=== PATIENT | male | born 1955 | race Caucasian/White ===

== ENCOUNTER 2025-04-04 08:41 | Outpatient (AMB) | payer OTHER, SELFPAY ==
[2025-04-04 08:44] VITALS: BMI 32.4
--- NOTE | 2025-04-04 08:44 | A.PHYSOV_ITS ---
Vital Signs 04/04/25 08:44 Height 5 ft 11 in Weight 232 lb BMI 32.4 Intake Visit Reasons: RT SHOULDER INJECTION Intake Note: Patient is a 69 year old male in office today for a Right Shoulder Injection. Allergies No Known Allergies Allergy (Verified 04/04/25 08:43) [facility] Medical History (Updated 04/04/25 @ 08:59 by Sammy Boston DO) DJD of right shoulder Rotator cuff impingement syndrome of right shoulder Surgical History History of knee surgery History of hernia repair Social History Alcohol intake: current Alcohol intake frequency: does not drink Patient Tobacco Use Status: Former Tobacco user Use of substances other than those prescribed or required for medical reasons: No Current occupational status: retired Physical Exam Vital Signs: BMI result Body Mass Index 32.4 Office Procedures AMB Shoulder Injection AMB Shoulder Injection Procedure Details: After informed consent was obtained, posterior aspect of the right shoulder was prepped with Betadine. 1.5 in 22 gauge hypodermic needle was introduced percutaneously and advanced into the subacromial area. After negative aspiration for blood total volume of 6 cc containing 40 mg of triamcinolone and 2% lidocaine was injected without resistance. Needle was redirected into the glenohumeral joint an additional 6 cc of solution containing 40 mg of triamcinolone and 2% lidocaine were injected after negative aspiration for blood and without resistance. Patient tolerated procedure very well without complications with excellent anesthetic response. Shoulder Injection - : Right All charges added?: Procedure code (CPT) selection complete Office Meds Kenalog 40 mg/mL suspension for injection Performing Provider: Sammy Boston DO Performing Location: [facility] Administered by: Sammy Boston DO on 04/04/25 08:58 Dose Route Admin Location Dispensed Lot Number Expiration Date [facility] [employer] 80 mg intra-articular 2 mL [address]-9 [employer] Total Dispensed Waste 2 mL 0 % lidocaine (PF) 20 mg/mL (2 %) injection solution Performing Provider: Sammy Boston DO [facility] Administered by: Sammy Boston DO on 04/04/25 08:58 Dose Route Admin Location Dispensed Lot Number Expiration Date [facility] [employer] 200 mg intra-articular 10 mL [id number] [facility] Total Dispensed Waste 10 mL 0 % Assessment & Plan Assessment & Plan (1) Rotator cuff impingement syndrome of right shoulder: Code(s): M75.41 - Impingement syndrome of right shoulder Category: Medical Plan: Shoulder injection (2) DJD of right shoulder: Code(s): M19.011 - Primary osteoarthritis, right shoulder Category: Medical Qualifiers: Osteoarthritis type: primary Qualified Code(s): M19.011 - Primary osteoarthritis, right shoulder Plan: Shoulder injection Plan Shoulder injection Orders: Orders AMB Shoulder Injection Today M19.011 - Primary osteoarthritis, right shoulder, M75.41 - Impingement syndrome of right shoulder Coding Level of Care Code Procedure Only Diagnoses Rotator cuff impingement syndrome of right shoulder M75.41 Primary osteoarthritis of right shoulder M19.011 Osteoarthritis type: primary CPT Codes AMB Shoulder Injection - Hip/Bursa Injection - : Right ([id number])
--- OUTSIDE RECORDS SUMMARY | 2025-04-04 09:23 | XMS_ITS | Patient Health Record ---
Author Organization [facility] Address [address] [place] [address] Care Team Providers Care Engineering Patternmaker Name Role Phone FÉLIX BRO Primary Care Provider Faizan Rosa Unavailable [phone] Allergies Allergen (clinical drug ingredient) Drug/Non Drug Allergy documented on EMR Reaction Allergy Type Onset Date Status Substance with 9-fjzlpqy-7-methylglu taryl-coenzyme A reductase inhibitor mechanism of action (substance) Statins Muscle aches Drug Allergy Active Results Component Value Reference Range Notes US ABDOMEN AORTIC ANEURYSM S CREENING Reviewed date:03/15/2025 05:02:29 PM Interpretation: Performing Lab: Notes/Report: Note See Note [facility], a member of [email or web address] Patient Name: PALLAVI ELLIOTT Date of : 1955 Reason for Exam: US abdomen Aorta Scr Study AAA Exam Date: 03/15/2025 [id number] EST Report Status: Final Ordering Provider: FÉLIX BRO PCP: FÉLIX BRO HISTORY: The patient is a 69-year-old male former smoker with hypertension, presenting for screening for an abdominal aortic aneurysm. FINDINGS: Real-time ultrasonography of the abdominal aorta is performed. The aorta is normal in caliber, with the suprarenal aorta measuring 3.1 cm in AP dimension x 2.6 cm in transverse dimension; the proximal infrarenal aorta measuring 2.1 x 2.2 cm; and the distal infrarenal aorta measuring 1.9 x 1.6 cm. The common iliac arteries are normal in caliber, with the right ARCHANA measuring 1.6 cm and the left ARCHANA measuring 1.5 cm. IMPRESSION: The abdominal aorta is normal in caliber, without evidence of aneurysm. Code 62278 G9551 -------- FINAL REPOR T -------- Dictated By: Pallavi Sarmiento Dictated Date: 03/15/2025 11:06 ET Assigned Physician: Pallavi Sarmiento Reviewed and Electronically Signed By: Pallavi Sarmiento Signed Date: 11:08 ET Workstation ID: [id number] Transcribed By: Self Edit Transcribed Date: 03/15/2025 11:06 ET LIPID PANEL WITH REFLEX TO D IRECT LDL Reviewed date:03/06/2025 05:41:03 PM Interpretation: Performing Lab: Notes/Report: Cholesterol 148 0-200 mg/dL Triglycerides 150 0-150 mg/dL HDL 40 >=40 mg/dL LDL Calculated 78 0-100 mg/dL Estimated LDL Calculated using equation: Total cholesterol - HDL cholesterol - (Triglycerides/5) VLDL Cholesterol Reinaldo 30 Non HDL Chol. (LDL+VLDL) 108 <145 mg/dL Chol/HDL Ratio 3.7 0.0-4.4 BASIC METABOLIC PANEL Reviewed date:03/06/2025 05:41:04 PM Interpretation: Performing Lab: Notes/Report: Sodium 139 133-145 mmol/L Potassium 4.1 3.5-5.5 mmol/L Chloride 104 96-110 mmol/L CO2 29 21-32 mmol/L Anion Gap 6 3-11 Glucose 103 70-100 mg/dL BUN 29 5-25 mg/dL Creatinine 1.23 0.70-1.30 mg/dL eGFR 63 >=60 mL/min/1.73m2 Calculati on based on the Chronic Kidney Disease Epidemiology Collaboration (CKD-EPI) equation refit without adjustment for race. BUN/Creatinine Ratio 23.6 Calcium 9.5 8.5-10.5 mg/dL TISSUE EXAM Reviewed date:12/24/2024 12:05:04 AM Interpretation: Performing Lab: Notes/Report: Received in formalin labeled cecum x 2 , are 2 ramirez-white, polypoid soft tissue fragments, averaging 0.5 x 0.3 x 0.2 cm. The specimen is entirely submitted in cassette A1, 2 pieces. TAMIE SANCHEZ (ASCP)CM- 12/22/24 B. Large Intestine, Right/Ascending Colon, x4: Received in formalin labeled right/ascending colon polyp x 4 , are multiple ramirez-white, polypoid soft tissue fragments, ranging from 0.2 x 0.2 x 0.1 cm to 1.0 x 0.5 x 0.3 cm. The specimen is entirely submitted in cassette B1, multiple pieces. MG PA (ASCP)CM- 12/22/24 C. Large Intestine, Transverse Colon, x4: Received in formalin labeled transverse colon polyp x 4 , are multiple ramirez- white, polypoid soft tissue fragments ranging from 0.2 x 0.1 x 0.1 cm to 0.7 x 0.2 x 0.2 cm. The specimen is entirely submitted in cassette C1, multiple pieces. MG PA (ASCP)CM- 12/22/24 D. Large Intestine, Sigmoid Colon, : Received in formalin labeled sigmoid colon polyp , is a ramirez-white, polypoid soft tissue fragment measuring 1.4 x 0.3 x 0.2 cm. The specimen is entirely submitted in cassette D1, 1 piece. MG PA (ASCP)CM- 12/22/24 Final Diagnosis A. Large Intestine, cecum, polyp x 2, biopsy: Two fragments of hyperplastic polyps. Clinically 2 polyps. B. Large Intestine, ascending colon, polyp x 4, biopsy: Predominantly fragments of sessile serrated lesion/s. One fragment of tubular adenoma. Additional fragments of colonic mucosa with patchy mucosal hyperplasia and lymphoid aggregates. No evidence of high-grade dysplasia. Clinically 4 polyps. C. Large Intestine, transverse Colon, polyp x 4, biopsy: Predominantly fragments of tubular adenoma. Few fragments of sessile serrated lesion/s. Additional fragments of colonic mucosa with patchy mucosal hyperplasia. Negative for high-grade dysplasia. Clinically 4 polyps. D. Large Intestine, sigmoid colon, biopsy: Hyperplastic polyp. Gross Description A. Large Intestine, Cecum, x2: Disclaimer The technical compon ents of [place] [address] CLIA # [id number] LIPID PANEL WITH REFLEX TO Norman MILLERCT LDL Reviewed date:08/24/2024 01:23:26 PM Interpretation: Performing Lab: Notes/Report: Cholesterol 202 0-200 mg/dL Triglycerides 142 0-150 mg/dL HDL 43 >=40 mg/dL LDL Calculated 131 0-100 mg/dL VLDL Cholesterol Reinaldo 28.4 Non HDL Chol. (LDL+VLDL) 159 <145 mg/dL Chol/HDL Ratio 4.7 0.0-4.4 COMPREHENSIVE METABOLIC PANE L Reviewed date:08/24/2024 01:24:16 PM Interpretation: Performing Lab: Notes/Report: Sodium 135 133-145 mmol/L Potassium 4.1 3.5-5.5 mmol/L Chloride 101 96-110 mmol/L CO2 27 21-32 mmol/L Anion Gap 7 3-11 Glucose 116 70-100 mg/dL BUN 26 5-25 mg/dL Creatinine 1.30 0.70-1.30 mg/dL eGFR 59 >=60 mL/min/1.73m2 Calculati on based on the Chronic Kidney Disease Epidemiology Collaboration (CKD-EPI) equation refit without adjustment for race. BUN/Creatinine Ratio 20.0 Calcium 10.0 8.5-10.5 mg/dL AST (SGOT) 33 10-42 unit/L ALT (SGPT) 42 10-60 unit/L Alkaline Phosphatase 40 42-121 unit/L Total Protein 7.4 6.0-8.0 g/dL Albumin 4.2 3.2-5.0 g/dL Total Bilirubin 0.7 0.0-1.4 mg/dL HEMOGLOBIN A1C Reviewed date:08/24/2024 04:21:42 PM Interpretation: Performing Lab: Notes/Report: Hemoglobin A1C 5.4 <6.5 % Mean Bld Glu Estim. 108 MICROALBUMIN CREATININE URIN E RATIO Reviewed date:08/25/2024 07:37:13 AM Interpretation: Performing Lab: Notes/Report: Creatinine, Urine 169.0 Microalb, Ur 28.4 0.0-29.0 mg/L Microalb/Creat Ratio 17 <30 mg/g creat Reason For Referral Reason SCREENING- Positive cologuard. Never had colonoscopy Please evaluate and treat Diagnosis 1 Encounter for screen ing for malignant neoplasm of colon (Z12.11) Referral Organization [facility] Referring Provider First Name FÉLIX Referring Provider Last Name DIEUDONNE Referring Provider Speciality Internal M edicine Referred Provider Specialty Gastroentero logy General Notes Please call the meng ent to schedule the appointment, Encounter created and SMS sent to the ptOsbaldo Rubin Charmain 12/01/2024 09:50:10 AM > Referral Priority Urgent Medications Medication SIG (Take, Route, Frequency, Duration) Notes Start Date End Date Status Lisinopril 40 MG 1 tablet Orally Once a day; Duration: 90 days Active Ezetimibe 10 MG 1 tablet Orally Once a day; Duration: 30 days Active hydroCHLOROthiazide 25 MG TAKE 1 TABLET BY MOUTH DAILY IN THE MORNING; Duration: 30 Active Fenofibrate 145 MG 1 tablet Orally Once a day; Duration: 30 days 02/16/2024 Active Claritin Active Nexletol 180 MG 1 tablet Orally Once a day; Duration: 90 days 08/31/2024 Active CoQ-10 200 MG as directed Orally Active Multivitamin Active amLODIPine Besylate 10 MG TAKE 1 TABLET BY MOUTH DAILY; Duration: 30 Active Aspir-81 Active Triamcinolone Acetonide 0.1 % 1 application Externally Two times a Week; Duration: 30 days 2 tubes Active cloNIDine 0.1 MG/24HR 1 patch to skin Transdermal Once weekly; Duration: 90 days Active Social History Tobacco Use: Social History Observation Description Date Details (start date - stop date) Never Smoker NA - NA Tobacco Use/Smoking Question Answer Notes Are you a nonsmoker Problems Problem Type SNOMED Code ICD Code Onset Dates Problem Status W/U Status Risk Notes Problem Morbid obesity (disorder) (995029232) Morbid (severe) obesity due to excess calories (E66.01) Active confirmed Problem Obesity due to excess calories (453437412) Other obesity due to excess calories (E66.09) Active confirmed Problem Mixed hyperlipidemia (720425027) Mixed hyperlipidemia (E78.2) Active confirmed Problem Chronic kidney disease due to hypertension (614061723695740) Hypertensive chronic kidney disease with stage 1 through stage 4 chronic kidney disease, or unspecified chronic kidney disease (I12.9) Active confirmed Problem Polyp of colon (91482776) Polyp of colon (K63.5) Active confirmed Problem Osteoarthritis (914767236) Polyosteoarthriti s, unspecified (M15.9) Active confirmed Problem Artificial knee joint present (284454701040) Presence of right artificial knee joint (Z96.651) Active confirmed Problem Essential hypertension (64417110) Essential (primary) hypertension (I10) Active confirmed Problem Chronic kidney disease stage 3A (disorder) (776722693) Chronic kidney disease, stage 3a (N18.31) Active confirmed Vital Signs Heart Rate 90 /min 03/02/2025 Temperature 97.0 degrees Fahrenheit 03/02/2025 Oximetry 96 % 03/02/2025 Blood pressure diastolic 78 mm Hg 03/02/2025 Height 5'11'' in 03/02/2025 Blood pressure systolic 120 mm Hg 03/02/2025 Weight 236.0 lbs 03/02/2025 BMI 32.91 kg/m2 03/02/2025 Encounters Encounter Location Date Provider Diagnosis [address] [place] [address] 05/03/2024 HEARD GUL Essential (primary) hypertension I10 ; Mixed hyperlipidemia E78.2 ; Morbid (severe) obesity due to excess calories E66.01 and Prediabetes R73.[address] [place] [address] 08/31/2024 HEARD GUL Essential (primary) hypertension I10 ; Mixed hyperlipidemia E78.2 ; Morbid (severe) obesity due to excess calories E66.01 and Dietary counseling and surveillance Z71.[address] [place] [address] 12/01/2024 HEARD GUL Mixed hyperlipidemia E78.2 ; Essential (primary) hypertension I10 ; Other obesity due to excess calories E66.09 and Dietary counseling and surveillance Z71.[address] [place] [address] 03/02/2025 HEARD GUL Other obesity due to excess calories E66.09 ; Essential (primary) hypertension I10 ; Dietary counseling and surveillance Z71.3 ; Personal history of nicotine dependence Z87.891 ; Mixed hyperlipidemia E78.2 ; Chronic kidney disease, stage 3a N18.31 and Hypertensive chronic kidney disease with stage 1 through stage 4 chronic kidney disease, or unspecified chronic kidney disease I12.[address] [place] [address] 09/01/2024 HEARD GUL [address] [place] [address] 10/28/2024 [facility] [address] [place] [address] 12/01/2024 [facility] [address] [facility] [place] [address] 12/01/2024 HEARD GUL Mixed hyperlipidemia E78.2 [facility] [address] [place] [address] 01/23/2025 [facility] [address] [place] [address] 02/20/2025 [facility] Mixed hyperlipidemia E78.2 [facility] [address] [place] [address] 03/02/2025 [facility] [address] [place] [address] 05/22/2024 [facility] [address] [place] [address] 06/06/2024 [facility] [address] [place] [address] 07/04/2024 [facility] [address] [place] [address] 07/05/2024 [facility] [address] [place] [address] 08/01/2024 [facility] [address] [place] [address] 08/03/2024 [facility] [address] [place] [address] 09/01/2024 [facility] [address] [place] [address] 09/02/2024 [facility] [address] [place] [address] 12/01/2024 HEARD GUL [facility] [address] [place] [address] 02/19/2025 FÉLIX BRO Mixed hyperlipidemia E78.2 [facility] [address] [place] [address] 02/19/2025 HEARD [facility] [address] [address] 02/22/2025 HEARD GUL Mixed hyperlipidemia E78.2 [facility] [address] [place] [address] 03/13/2025 FÉLIX BRO Assessments Encounter Date Diagnosis (ICD Code) Assessment Notes Treatment Notes Treatment Clinical Notes Section Notes 05/03/2024 Essential (primary) hypertension (ICD-10 - I10) Pallavi is 68 years old gentlemanhis hypertension, hyperlipidemia, osteoarthritis, morbid obesity is here for follow-up. Plan is as follows Hypertension. Blood pressure reasonably controlled on current regimen of clonidine 0.1 mg patch, amlodipine 10 mg daily, lisinopril 40 mg daily and hydrochlorothiazide 25 mg daily. Mixed hyperlipidemia. Unfortunately cannot tolerate statins. Lipid panel is abnormal. Continue Zetia 10 mg and he is also on fenofibrate 145 mg daily. Recheck lipid panel and he can be a good candidate for Rapatha or Bempiodoic acid. We will discuss our next appointment Osteoarthritis. He follows up with physiatry and have intra-articular injections in the knee joint Prediabetes. Complications of diabetes discussed. Will weight loss recommended along with dietary changes and check A1c before next appointment Morbid obesity. He has been noncompliant with low calorie diet and he is trying to change his eating habits and check hemoglobin A1c and fasting sugars before next appointment. If he fails with dietary modification can be a good candidate for GLP-1. Screening blood work ordered 08/31/2024 Mixed hyperlipidemia (ICD-10 - E78.2) Pallavi is 69-year-old woman with hypertension, hyperlipidemia, multiple joint osteoarthritis and status post right knee replacement and morbid obesity is here today for follow-up. Plan is as follows Hypertension. Blood pressure well controlled on amlodipine 10 mg daily and lisinopril 2 mg daily. Mixed hyperlipidemia. He is currently on Zetia 10 mg and fenofibrate 145 mg daily his total cholesterol is 202 and LDL cholesterol is 131. His goal LDL cholesterol is under 100. he cannot tolerate statins. We will try PCSK 9 and Neltrexol if covered by insurance because his ASCVD risk is 23.7%. Morbid obesity. He has lost 20 pounds since his last visit and he is doing it with diet and exercise. He is plateaued. Today we talked about medical meal replacement plans and he wants to try. He is not interested in pharmacotherapy. His goal is to lose 6 pounds a month. Follow-up in 3 months 12/01/2024 Essential (primary) hypertension (ICD-10 - I10) Pallavi is 69-year-old woman with hypertension, hyperlipidemia, multiple joint osteoarthritis and status post right knee replacement and morbid obesity is here today for follow-up. Plan is as follows Hypertension. Blood pressure well controlled on amlodipine 10 mg daily and lisinopril 2 mg daily. Mixed hyperlipidemia. He is currently on Zetia 10 mg and fenofibrate 145 mg daily and continue Neltrexol his ASCVD risk is 23.7%. Morbid obesity. He has lost 20 pounds since his last visit and he is doing it with diet and exercise. He is plateaued. Today we talked about medical meal replacement plans and he wants to try. He is not interested in pharmacotherapy. His goal is to lose 6 pounds a month. Positive Cologuard. We will do screening colonoscopy and referral done Follow-up in 3 months 12/01/2024 Mixed hyperlipidemia (ICD-10 - E78.2) 02/19/2025 Mixed hyperlipidemia (ICD-10 - E78.2) 02/20/2025 Mixed hyperlipidemia (ICD-10 - E78.2) 02/22/2025 Mixed hyperlipidemia (ICD-10 - E78.2) 03/02/2025 Other obesity due to excess calories (ICD-10 - E66.09) Pallavi is 69 years old gentleman with hypertension, hyperlipidemia, multiple joint osteoarthritis, chronic kidney disease stage IIIa and former smoker is here today for follow-up on morbid obesity and weight management. He is not on any medications at this point in time. He is doing dietary changes. Plan is as follows Hypertension. Blood pressure well controlled on lisinopril 40 mg daily and he is also on clonidine 0.4 mg 24 hours patch, amlodipine 10 mg daily and hydrochlorothiazide 25 mg daily. Low sodium diet recommended Mixed hyperlipidemia. Continue on Zetia 10 mg daily, fenofibrate 145 mg daily and he is also on Nexletol 180 mg daily and is tolerating the medication fine. Check lipid panel. Chronic kidney disease stage IIIa. He is stable and advised appropriate hydration, avoid NSAIDs and we will monitor. Personal history of nicotine dependence. Will do ultrasound to rule out AAA Morbid obesity. He lost 3 pounds since last visit and he is not on medications. Dietary recommendations. Food recall was done today and patient advised to be on low calorie, low carbohydrate diet. Restrict calories to less than 1500 kcal in 24 hours. Low glycemic index foods and encouraged. Meal replacements were recommended. Advised to use yqkm-rrv-otviotj multivitamins and vitamin D. Advised to use calorie counter and adhere to portion control. Monthly goal is to lose 4-6 pounds Pharmacotherapy. He is not interested in pharmacotherapy at this point Exercise. Patient encouraged to increase frequency, intensity and duration of exercise. Encouraged to burn at least 250-500 kcal in one session. Also encouraged to do weight training Assess. Different risk factors discussed with the patient and addressed Advise. Patient was given clear And specific advise that she will comply with Low-calorie diet and try not to exceed more than 1300 kcal in 24 hours. Agree. Mutually agreed to work together to achieve appropriate goals Assist. Motivational interviewing done. Arrange. Follow-up appointment arranged. Counseling. 25 minutes spent Face to face with the patient more than 50% of time was spent counseling 08/31/2024 Essential (primary) hypertension (ICD-10 - I10) Pallavi is 69-year-old woman with hypertension, hyperlipidemia, multiple joint osteoarthritis and status post right knee replacement and morbid obesity is here today for follow-up. Plan is as follows Hypertension. Blood pressure well controlled on amlodipine 10 mg daily and lisinopril 2 mg daily. Mixed hyperlipidemia. He is currently on Zetia 10 mg and fenofibrate 145 mg daily his total cholesterol is 202 and LDL cholesterol is 131. His goal LDL cholesterol is under 100. he cannot tolerate statins. We will try PCSK 9 and Neltrexol if covered by insurance because his ASCVD risk is 23.7%. Morbid obesity. He has lost 20 pounds since his last visit and he is doing it with diet and exercise. He is plateaued. Today we talked about medical meal replacement plans and he wants to try. He is not interested in pharmacotherapy. His goal is to lose 6 pounds a month. Follow-up in 3 months 12/01/2024 Mixed hyperlipidemia (ICD-10 - E78.2) Pallavi is 69-year-old woman with hypertension, hyperlipidemia, multiple joint osteoarthritis and status post right knee replacement and morbid obesity is here today for follow-up. Plan is as follows Hypertension. Blood pressure well controlled on amlodipine 10 mg daily and lisinopril 2 mg daily. Mixed hyperlipidemia. He is currently on Zetia 10 mg and fenofibrate 145 mg daily and continue Neltrexol his ASCVD risk is 23.7%. Morbid obesity. He has lost 20 pounds since his last visit and he is doing it with diet and exercise. He is plateaued. Today we talked about medical meal replacement plans and he wants to try. He is not interested in pharmacotherapy. His goal is to lose 6 pounds a month. Positive Cologuard. We will do screening colonoscopy and referral done Follow-up in 3 months 03/02/2025 Essential (primary) hypertension (ICD-10 - I10) Pallavi is 69 years old gentleman with hypertension, hyperlipidemia, multiple joint osteoarthritis, chronic kidney disease stage IIIa and former smoker is here today for follow-up on morbid obesity and weight management. He is not on any medications at this point in time. He is doing dietary changes. Plan is as follows Hypertension. Blood pressure well controlled on lisinopril 40 mg daily and he is also on clonidine 0.4 mg 24 hours patch, amlodipine 10 mg daily and hydrochlorothiazide 25 mg daily. Low sodium diet recommended Mixed hyperlipidemia. Continue on Zetia 10 mg daily, fenofibrate 145 mg daily and he is also on Nexletol 180 mg daily and is tolerating the medication fine. Check lipid panel. Chronic kidney disease stage IIIa. He is stable and advised appropriate hydration, avoid NSAIDs and we will monitor. Personal history of nicotine dependence. Will do ultrasound to rule out AAA Morbid obesity. He lost 3 pounds since last visit and he is not on medications. Dietary recommendations. Food recall was done today and patient advised to be on low calorie, low carbohydrate diet. Restrict calories to less than 1500 kcal in 24 hours. Low glycemic index foods and encouraged. Meal replacements were recommended. Advised to use ekrz-nap-xvmjwjx multivitamins and vitamin D. Advised to use calorie counter and adhere to portion control. Monthly goal is to lose 4-6 pounds Pharmacotherapy. He is not interested in pharmacotherapy at this point Exercise. Patient encouraged to increase frequency, intensity and duration of exercise. Encouraged to burn at least 250-500 kcal in one session. Also encouraged to do weight training Assess. Different risk factors discussed with the patient and addressed Advise. Patient was given clear And specific advise that she will comply with Low-calorie diet and try not to exceed more than 1300 kcal in 24 hours. Agree. Mutually agreed to work together to achieve appropriate goals Assist. Motivational interviewing done. Arrange. Follow-up appointment arranged. Counseling. 25 minutes spent Face to face with the patient more than 50% of time was spent counseling 03/02/2025 Dietary counseling and surveillance (ICD-10 - Z71.3) Pallavi is 69 years old gentleman with hypertension, hyperlipidemia, multiple joint osteoarthritis, chronic kidney disease stage IIIa and former smoker is here today for follow-up on morbid obesity and weight management. He is not on any medications at this point in time. He is doing dietary changes. Plan is as follows Hypertension. Blood pressure well controlled on lisinopril 40 mg daily and he is also on clonidine 0.4 mg 24 hours patch, amlodipine 10 mg daily and hydrochlorothiazide 25 mg daily. Low sodium diet recommended Mixed hyperlipidemia. Continue on Zetia 10 mg daily, fenofibrate 145 mg daily and he is also on Nexletol 180 mg daily and is tolerating the medication fine. Check lipid panel. Chronic kidney disease stage IIIa. He is stable and advised appropriate hydration, avoid NSAIDs and we will monitor. Personal history of nicotine dependence. Will do ultrasound to rule out AAA Morbid obesity. He lost 3 pounds since last visit and he is not on medications. Dietary recommendations. Food recall was done today and patient advised to be on low calorie, low carbohydrate diet. Restrict calories to less than 1500 kcal in 24 hours. Low glycemic index foods and encouraged. Meal replacements were recommended. Advised to use vegz-edg-mdtnhba multivitamins and vitamin D. Advised to use calorie counter and adhere to portion control. Monthly goal is to lose 4-6 pounds Pharmacotherapy. He is not interested in pharmacotherapy at this point Exercise. Patient encouraged to increase frequency, intensity and duration of exercise. Encouraged to burn at least 250-500 kcal in one session. Also encouraged to do weight training Assess. Different risk factors discussed with the patient and addressed Advise. Patient was given clear And specific advise that she will comply with Low-calorie diet and try not to exceed more than 1300 kcal in 24 hours. Agree. Mutually agreed to work together to achieve appropriate goals Assist. Motivational interviewing done. Arrange. Follow-up appointment arranged. Counseling. 25 minutes spent Face to face with the patient more than 50% of time was spent counseling 12/01/2024 Other obesity due to excess calories (ICD-10 - E66.09) Pallavi is 69-year-old woman with hypertension, hyperlipidemia, multiple joint osteoarthritis and status post right knee replacement and morbid obesity is here today for follow-up. Plan is as follows Hypertension. Blood pressure well controlled on amlodipine 10 mg daily and lisinopril 2 mg daily. Mixed hyperlipidemia. He is currently on Zetia 10 mg and fenofibrate 145 mg daily and continue Neltrexol his ASCVD risk is 23.7%. Morbid obesity. He has lost 20 pounds since his last visit and he is doing it with diet and exercise. He is plateaued. Today we talked about medical meal replacement plans and he wants to try. He is not interested in pharmacotherapy. His goal is to lose 6 pounds a month. Positive Cologuard. We will do screening colonoscopy and referral done Follow-up in 3 months 05/03/2024 Mixed hyperlipidemia (ICD-10 - E78.2) Pallavi is 68 years old gentlemanhis hypertension, hyperlipidemia, osteoarthritis, morbid obesity is here for follow-up. Plan is as follows Hypertension. Blood pressure reasonably controlled on current regimen of clonidine 0.1 mg patch, amlodipine 10 mg daily, lisinopril 40 mg daily and hydrochlorothiazide 25 mg daily. Mixed hyperlipidemia. Unfortunately cannot tolerate statins. Lipid panel is abnormal. Continue Zetia 10 mg and he is also on fenofibrate 145 mg daily. Recheck lipid panel and he can be a good candidate for Rapatha or Bempiodoic acid. We will discuss our next appointment Osteoarthritis. He follows up with physiatry and have intra-articular injections in the knee joint Prediabetes. Complications of diabetes discussed. Will weight loss recommended along with dietary changes and check A1c before next appointment Morbid obesity. He has been noncompliant with low calorie diet and he is trying to change his eating habits and check hemoglobin A1c and fasting sugars before next appointment. If he fails with dietary modification can be a good candidate for GLP-1. Screening blood work ordered 08/31/2024 Morbid (severe) obesity due to excess calories (ICD-10 - E66.01) Pallavi is 69-year-old woman with hypertension, hyperlipidemia, multiple joint osteoarthritis and status post right knee replacement and morbid obesity is here today for follow-up. Plan is as follows Hypertension. Blood pressure well controlled on amlodipine 10 mg daily and lisinopril 2 mg daily. Mixed hyperlipidemia. He is currently on Zetia 10 mg and fenofibrate 145 mg daily his total cholesterol is 202 and LDL cholesterol is 131. His goal LDL cholesterol is under 100. he cannot tolerate statins. We will try PCSK 9 and Neltrexol if covered by insurance because his ASCVD risk is 23.7%. Morbid obesity. He has lost 20 pounds since his last visit and he is doing it with diet and exercise. He is plateaued. Today we talked about medical meal replacement plans and he wants to try. He is not interested in pharmacotherapy. His goal is to lose 6 pounds a month. Follow-up in 3 months 05/03/2024 Morbid (severe) obesity due to excess calories (ICD-10 - E66.01) Pallavi is 68 years old gentlemanhis hypertension, hyperlipidemia, osteoarthritis, morbid obesity is here for follow-up. Plan is as follows Hypertension. Blood pressure reasonably controlled on current regimen of clonidine 0.1 mg patch, amlodipine 10 mg daily, lisinopril 40 mg daily and hydrochlorothiazide 25 mg daily. Mixed hyperlipidemia. Unfortunately cannot tolerate statins. Lipid panel is abnormal. Continue Zetia 10 mg and he is also on fenofibrate 145 mg daily. Recheck lipid panel and he can be a good candidate for Rapatha or Bempiodoic acid. We will discuss our next appointment Osteoarthritis. He follows up with physiatry and have intra-articular injections in the knee joint Prediabetes. Complications of diabetes discussed. Will weight loss recommended along with dietary changes and check A1c before next appointment Morbid obesity. He has been noncompliant with low calorie diet and he is trying to change his eating habits and check hemoglobin A1c and fasting sugars before next appointment. If he fails with dietary modification can be a good candidate for GLP-1. Screening blood work ordered 08/31/2024 Dietary counseling and surveillance (ICD-10 - Z71.3) Pallavi is 69-year-old woman with hypertension, hyperlipidemia, multiple joint osteoarthritis and status post right knee replacement and morbid obesity is here today for follow-up. Plan is as follows Hypertension. Blood pressure well controlled on amlodipine 10 mg daily and lisinopril 2 mg daily. Mixed hyperlipidemia. He is currently on Zetia 10 mg and fenofibrate 145 mg daily his total cholesterol is 202 and LDL cholesterol is 131. His goal LDL cholesterol is under 100. he cannot tolerate statins. We will try PCSK 9 and Neltrexol if covered by insurance because his ASCVD risk is 23.7%. Morbid obesity. He has lost 20 pounds since his last visit and he is doing it with diet and exercise. He is plateaued. Today we talked about medical meal replacement plans and he wants to try. He is not interested in pharmacotherapy. His goal is to lose 6 pounds a month. Follow-up in 3 months 12/01/2024 Dietary counseling and surveillance (ICD-10 - Z71.3) Pallavi is 69-year-old woman with hypertension, hyperlipidemia, multiple joint osteoarthritis and status post right knee replacement and morbid obesity is here today for follow-up. Plan is as follows Hypertension. Blood pressure well controlled on amlodipine 10 mg daily and lisinopril 2 mg daily. Mixed hyperlipidemia. He is currently on Zetia 10 mg and fenofibrate 145 mg daily and continue Neltrexol his ASCVD risk is 23.7%. Morbid obesity. He has lost 20 pounds since his last visit and he is doing it with diet and exercise. He is plateaued. Today we talked about medical meal replacement plans and he wants to try. He is not interested in pharmacotherapy. His goal is to lose 6 pounds a month. Positive Cologuard. We will do screening colonoscopy and referral done Follow-up in 3 months 03/02/2025 Personal history of nicotine dependence (ICD-10 - Z87.891) Pallavi is 69 years old gentleman with hypertension, hyperlipidemia, multiple joint osteoarthritis, chronic kidney disease stage IIIa and former smoker is here today for follow-up on morbid obesity and weight management. He is not on any medications at this point in time. He is doing dietary changes. Plan is as follows Hypertension. Blood pressure well controlled on lisinopril 40 mg daily and he is also on clonidine 0.4 mg 24 hours patch, amlodipine 10 mg daily and hydrochlorothiazide 25 mg daily. Low sodium diet recommended Mixed hyperlipidemia. Continue on Zetia 10 mg daily, fenofibrate 145 mg daily and he is also on Nexletol 180 mg daily and is tolerating the medication fine. Check lipid panel. Chronic kidney disease stage IIIa. He is stable and advised appropriate hydration, avoid NSAIDs and we will monitor. Personal history of nicotine dependence. Will do ultrasound to rule out AAA Morbid obesity. He lost 3 pounds since last visit and he is not on medications. Dietary recommendations. Food recall was done today and patient advised to be on low calorie, low carbohydrate diet. Restrict calories to less than 1500 kcal in 24 hours. Low glycemic index foods and encouraged. Meal replacements were recommended. Advised to use [id number]-[id number] multivitamins and vitamin D. Advised to use calorie counter and adhere to portion control. Monthly goal is to lose 4-6 pounds Pharmacotherapy. He is not interested in pharmacotherapy at this point Exercise. Patient encouraged to increase frequency, intensity and duration of exercise. Encouraged to burn at least 250-500 kcal in one session. Also encouraged to do weight training Assess. Different risk factors discussed with the patient and addressed Advise. Patient was given clear And specific advise that she will comply with Low-calorie diet and try not to exceed more than 1300 kcal in 24 hours. Agree. Mutually agreed to work together to achieve appropriate goals Assist. Motivational interviewing done. Arrange. Follow-up appointment arranged. Counseling. 25 minutes spent Face to face with the patient more than 50% of time was spent counseling 03/02/2025 Mixed hyperlipidemia (ICD-10 - E78.2) Pallavi is 69 years old gentleman with hypertension, hyperlipidemia, multiple joint osteoarthritis, chronic kidney disease stage IIIa and former smoker is here today for follow-up on morbid obesity and weight management. He is not on any medications at this point in time. He is doing dietary changes. Plan is as follows Hypertension. Blood pressure well controlled on lisinopril 40 mg daily and he is also on clonidine 0.4 mg 24 hours patch, amlodipine 10 mg daily and hydrochlorothiazide 25 mg daily. Low sodium diet recommended Mixed hyperlipidemia. Continue on Zetia 10 mg daily, fenofibrate 145 mg daily and he is also on Nexletol 180 mg daily and is tolerating the medication fine. Check lipid panel. Chronic kidney disease stage IIIa. He is stable and advised appropriate hydration, avoid NSAIDs and we will monitor. Personal history of nicotine dependence. Will do ultrasound to rule out AAA Morbid obesity. He lost 3 pounds since last visit and he is not on medications. Dietary recommendations. Food recall was done today and patient advised to be on low calorie, low carbohydrate diet. Restrict calories to less than 1500 kcal in 24 hours. Low glycemic index foods and encouraged. Meal replacements were recommended. Advised to use ahbn-qkj-zxvnanf multivitamins and vitamin D. Advised to use calorie counter and adhere to portion control. Monthly goal is to lose 4-6 pounds Pharmacotherapy. He is not interested in pharmacotherapy at this point Exercise. Patient encouraged to increase frequency, intensity and duration of exercise. Encouraged to burn at least 250-500 kcal in one session. Also encouraged to do weight training Assess. Different risk factors discussed with the patient and addressed Advise. Patient was given clear And specific advise that she will comply with Low-calorie diet and try not to exceed more than 1300 kcal in 24 hours. Agree. Mutually agreed to work together to achieve appropriate goals Assist. Motivational interviewing done. Arrange. Follow-up appointment arranged. Counseling. 25 minutes spent Face to face with the patient more than 50% of time was spent counseling 05/03/2024 Prediabetes (ICD-10 - R73.03) Pallavi is 68 years old gentlemanhis hypertension, hyperlipidemia, osteoarthritis, morbid obesity is here for follow-up. Plan is as follows Hypertension. Blood pressure reasonably controlled on current regimen of clonidine 0.1 mg patch, amlodipine 10 mg daily, lisinopril 40 mg daily and hydrochlorothiazide 25 mg daily. Mixed hyperlipidemia. Unfortunately cannot tolerate statins. Lipid panel is abnormal. Continue Zetia 10 mg and he is also on fenofibrate 145 mg daily. Recheck lipid panel and he can be a good candidate for Rapatha or Bempiodoic acid. We will discuss our next appointment Osteoarthritis. He follows up with physiatry and have intra-articular injections in the knee joint Prediabetes. Complications of diabetes discussed. Will weight loss recommended along with dietary changes and check A1c before next appointment Morbid obesity. He has been noncompliant with low calorie diet and he is trying to change his eating habits and check hemoglobin A1c and fasting sugars before next appointment. If he fails with dietary modification can be a good candidate for GLP-1. Screening blood work ordered 03/02/2025 Chronic kidney disease, stage 3a (ICD-10 - N18.31) Pallavi is 69 years old gentleman with hypertension, hyperlipidemia, multiple joint osteoarthritis, chronic kidney disease stage IIIa and former smoker is here today for follow-up on morbid obesity and weight management. He is not on any medications at this point in time. He is doing dietary changes. Plan is as follows Hypertension. Blood pressure well controlled on lisinopril 40 mg daily and he is also on clonidine 0.4 mg 24 hours patch, amlodipine 10 mg daily and hydrochlorothiazide 25 mg daily. Low sodium diet recommended Mixed hyperlipidemia. Continue on Zetia 10 mg daily, fenofibrate 145 mg daily and he is also on Nexletol 180 mg daily and is tolerating the medication fine. Check lipid panel. Chronic kidney disease stage IIIa. He is stable and advised appropriate hydration, avoid NSAIDs and we will monitor. Personal history of nicotine dependence. Will do ultrasound to rule out AAA Morbid obesity. He lost 3 pounds since last visit and he is not on medications. Dietary recommendations. Food recall was done today and patient advised to be on low calorie, low carbohydrate diet. Restrict calories to less than 1500 kcal in 24 hours. Low glycemic index foods and encouraged. Meal replacements were recommended. Advised to use zbak-prt-xhfzxut multivitamins and vitamin D. Advised to use calorie counter and adhere to portion control. Monthly goal is to lose 4-6 pounds Pharmacotherapy. He is not interested in pharmacotherapy at this point Exercise. Patient encouraged to increase frequency, intensity and duration of exercise. Encouraged to burn at least 250-500 kcal in one session. Also encouraged to do weight training Assess. Different risk factors discussed with the patient and addressed Advise. Patient was given clear And specific advise that she will comply with Low-calorie diet and try not to exceed more than 1300 kcal in 24 hours. Agree. Mutually agreed to work together to achieve appropriate goals Assist. Motivational interviewing done. Arrange. Follow-up appointment arranged. Counseling. 25 minutes spent Face to face with the patient more than 50% of time was spent counseling 03/02/2025 Hypertensive chronic kidney disease with stage 1 through stage 4 chronic kidney disease, or unspecified chronic kidney disease (ICD-10 - I12.9) Pallavi is 69 years old gentleman with hypertension, hyperlipidemia, multiple joint osteoarthritis, chronic kidney disease stage IIIa and former smoker is here today for follow-up on morbid obesity and weight management. He is not on any medications at this point in time. He is doing dietary changes. Plan is as follows Hypertension. Blood pressure well controlled on lisinopril 40 mg daily and he is also on clonidine 0.4 mg 24 hours patch, amlodipine 10 mg daily and hydrochlorothiazide 25 mg daily. Low sodium diet recommended Mixed hyperlipidemia. Continue on Zetia 10 mg daily, fenofibrate 145 mg daily and he is also on Nexletol 180 mg daily and is tolerating the medication fine. Check lipid panel. Chronic kidney disease stage IIIa. He is stable and advised appropriate hydration, avoid NSAIDs and we will monitor. Personal history of nicotine dependence. Will do ultrasound to rule out AAA Morbid obesity. He lost 3 pounds since last visit and he is not on medications. Dietary recommendations. Food recall was done today and patient advised to be on low calorie, low carbohydrate diet. Restrict calories to less than 1500 kcal in 24 hours. Low glycemic index foods and encouraged. Meal replacements were recommended. Advised to use wmqi-erz-sdksmcg multivitamins and vitamin D. Advised to use calorie counter and adhere to portion control. Monthly goal is to lose 4-6 pounds Pharmacotherapy. He is not interested in pharmacotherapy at this point Exercise. Patient encouraged to increase frequency, intensity and duration of exercise. Encouraged to burn at least 250-500 kcal in one session. Also encouraged to do weight training Assess. Different risk factors discussed with the patient and addressed Advise. Patient was given clear And specific advise that she will comply with Low-calorie diet and try not to exceed more than 1300 kcal in 24 hours. Agree. Mutually agreed to work together to achieve appropriate goals Assist. Motivational interviewing done. Arrange. Follow-up appointment arranged. Counseling. 25 minutes spent Face to face with the patient more than 50% of time was spent counseling Plan Of Treatment Pending Test Test Name Order Date US Abdomen Aorta Scr Study AAA Hemoglobin [id number] 02/10/2024 Lipid Panel-[id number] 02/10/2024 Lipid Panel-[id number] 03/02/2025 Basic Metabolic Panel [id number] Future Test Test Name Order Date Hemoglobin [id number] 05/03/2024 Albumin/Creatinine Ratio,[id number] Lipid Panel-[id number] 05/03/2024 Comp. Metabolic Panel [id number] Next Appt Details Provider Name:FÉLIX BRO , 07/06/2025 10:00:00 AM, [address] [place] [address], [id number], Insurance Providers Payer Name Payer Address Payer Phone Subscriber Number Group Number Insured Name Patient Relationship to Insured Coverage Start Date Coverage End Date [facility] [address] [place] [phone] [id number] Pallavi Elliott Self - patient is the insured 2 Medical (General) History Medical History History ICD Code hypertension hyperlipidemia morbid obesity dermatitis polyosteoarthritis Surgical History Surgery Date(Month/Year) right total knee replacement
--- OUTSIDE RECORDS SUMMARY | 2025-04-04 09:23 | XMS_ITS | Clinical Summary ---
Author Organization [facility] Prior to 09/17/[address] [place] [id number] Care Team Providers Care Parts Consultant Name Role Phone Vangie Aparicio MD Primary Care Provider [phone] Allergies No known active allergies Medications Medication Sig Dispensed Refills Start Date End Date Status aspirin 81 MG EC tablet Take 81 mg by mouth. 0 Active lisinopril-hydrochloro thiazide (PRINZIDE,ZESTORETIC) tablet 20-12.5 mg TAKE 2 TABLETS DAILY 0 10/06/2016 Active Multiple Vitamin (MULTIVITAMIN) tablet Take 1 tablet by mouth. 0 Active rosuvastatin (CRESTOR) tablet 10 mg TAKE 1 TABLET BY MOUTH EVERY WEEK 0 10/24/2016 Active amLODIPine (NORVASC) tablet 5 mg TAKE 1 TABLET BY MOUTH DAILY 1 02/17/2017 Active HYDROmorphone (DILAUDID) 2 MG tablet TAKE 1-2 TABLETS EVERY 4 HOURS NEEDED FOR PAIN 0 01/30/2017 Active tamsulosin (FLOMAX) 0.4 MG CAPS TAKE ONE CAPSULE BY MOUTH EVERY DAY 0 01/19/2017 Active Active Problems Problem Noted Date Diagnosed Date Acute pain of right knee 01/23/2017 Family History Medical History Relation Name Comments Heart disease Father Stroke Father Cancer Mother Relation Name Status Comments Father Mother Social History Tobacco Use Types Packs/Day Years Used Date Smoking Tobacco: Never Assessed Sex and Gender Information Value Date Recorded Sex Assigned at Not on file Gender Identity Not on file Sexual Orientation Not on file Last Filed Vital Signs Vital Sign Reading Time Taken Comments Blood Pressure - - Pulse - - Temperature - - Respiratory Rate - - Oxygen Saturation - - Inhaled Oxygen Concentration - - Weight 124.7 kg (275 lb) 12/19/2016 9:23 AM EDT Height 180.3 cm (5' 11 ) 12/19/2016 9:23 AM EDT Body Mass Index 38.35 12/19/2016 9:23 AM EDT Plan of Treatment Health Maintenance Due Date Last Done Comments Hepatitis C Screening 1955 COVID-19 Vaccine (#1) 01/28/1956 Depression Screening 1965 Preventative Health Evaluation 07/30/1971 Colon Cancer Screening (Colonoscopy) 1998 Shingrix-Zoster Vaccine (1 of 2) 07/30/2003 Fall Risk Assessment 2018 Pneumococcal Vaccine (1 of 1 - PCV) 2018 DTap / Tdap / Td (3 - Td or Tdap) 12/14/2021 12/15/2011, 04/05/2007 Influenza Vaccine (#1) 2024 9, 01/19/2018, 01/02/2017, Additional history exists RSV Adult > 60+ Yrs or (1 - 1-dose 75+ series) 2028 Hepatitis B Vaccines Aged Out No long er eligible based on patient's age to complete this topic RSV Ped < 20 months Aged Out No longe r eligible based on patient's age to complete this topic Care Teams Parts Consultant Relationship Specialty Start Date End Date Vangie Aparicio MD PCP - General Internal Medicine 12/01/16
--- OUTSIDE RECORDS SUMMARY | 2025-04-04 09:23 | XMS_ITS | Encounter Summary ---
Author Organization [facility] Address [address] [place] [address] Care Team Providers Care Manager Parking Name Role Phone North Roberts MD Primary Care Provider [phone] Encounter Details Date Type Department Care Team (Latest Contact Info) Description 12/22/2024 Lab Requisition [facility] Main Lab [address] [place] [address] Kyrie Najera DO [address] [address] Other fecal abnormalities Social History Tobacco Use Types Packs/Day Years Used Date Smoking Tobacco: Former Cigarettes 1 Q uit: 04/20/1986 Smokeless Tobacco: Never Alcohol Use Standard Drinks/Week Comments No 0 (1 standard drink = 0.6 oz pur e alcohol) Sex and Gender Information Value Date Recorded Sex Assigned at Not on file Legal Sex Male 3:54 PM EST Gender Identity Not on file Sexual Orientation Not on file documented as of this encounter Progress Notes * Kyrie Najera DO - 12/22/2024 7:12 AM EDT Please let the patient know that the colon polyps removed were benign, but precancerous. Given the size and number of polyps, it is important that a surveillance colonoscopy is performed in 1 year. Typically future colonoscopies are spaced out to every 3 to 5 years after the next one. Please place a reminder in the system for the patient to have a surveillance colonoscopy in 1 year.Split bowel prep instructions. Thank you. documented in this encounter Plan of Treatment Not on file documented as of this encounter Procedures Procedure Name Priority Date/Time Associated Diagnosis Comments TISSUE EXAM Routine 12/21/2024 Other fecal abnormalities documented in this encounter Results * Tissue Exam (12/21/2024) Final Diagnosis A. Large Intestine, cecum, polyp [...] Large Intestine, sigmoid colon, biopsy: Hyperplastic polyp. 12/23/2024 11:01 AM EDT [facility] ([facility]) [facility] at 1101 EDT Gross Description A. Large Intestine, Cecum, x2: Received in formalin labeled cecum x 2 , are 2 ramirez-white, polypoid soft tissue fragments, averaging 0.5 x 0.3 x 0.2 cm. The specimen is entirely submitted in cassette A1, 2 pieces. MG, PA (ASCP)CM- 12/22/24 B. Large Intestine, Right/Ascending Colon, x4: Received in formalin labeled right/ascending colon polyp x 4 , are multiple ramirez-white, polypoid soft tissue fragments, ranging from 0.2 x 0.2 x 0.1 cm to 1.0 x 0.5 x 0.3 cm. The specimen is entirely submitted in cassette B1, multiple pieces. MG, PA (ASCP)CM- 12/22/24 C. Large Intestine, Transverse Colon, x4: Received in formalin labeled transverse colon polyp x 4 , are multiple ramirez-white, polypoid soft tissue fragments ranging from 0.2 x 0.1 x 0.1 cm to 0.7 x 0.2 x 0.2 cm. The specimen is entirely submitted in cassette C1, multiple pieces. TAMIE (ASCP)CM- 12/22/24 D. Large Intestine, Sigmoid Colon, : Received in formalin labeled sigmoid colon polyp , is a ramirez-white, polypoid soft tissue fragment measuring 1.4 x 0.3 x 0.2 cm. The specimen is entirely submitted in cassette D1, 1 piece. TAMIE SANCHEZ (ASCP)CM- 12/22/24 12/23/2024 11:01 AM EDT [facility] Disclaimer The technical components of [place] [address] CLIA # [id number] 12/23/2024 11:01 AM EDT [facility] Tissue Sigmoid colon structure / Unknown 12/21/2024 12/22/2024 7:14 AM EDT Tissue specimen (specimen) Ascending colon structure / Unknown 12/21/2024 12/22/2024 7:14 AM EDT Tissue specimen (specimen) Transverse colon structure / Unknown 12/21/2024 12/22/2024 7:14 AM EDT Tissue specimen (specimen) Sigmoid colon structure / Unknown 12/21/2024 12/22/2024 7:14 AM EDT Kyrie Najera DO LAB PATHOLOGY ORDERABLES Final R esult [facility] [address] [place] [id number], documented in this encounter Visit Diagnoses Diagnosis Other fecal abnormalities documented in this encounter Care Teams Manager Parking Relationship Specialty Start Date End Date North Roberts MD [address] [place] [id number] PCP - General Internal Medicine 09/01/24 documented as of this encounter
--- OUTSIDE RECORDS SUMMARY | 2025-04-04 09:23 | XMS_ITS ---
Author Organization [facility] Care Team Providers Care High Man Name Role Phone Tala Venegas Unavailable Unavailable Gertrude Patel Unavailable Unavailable Fransico Stroud Unavailable Unavailable Merle Flores Unavailable Unavailable Eva Yoon Unavailable Unavailable Allergies and adverse reactions No Known Allergies Care Team Name Role Address Phone Organization Dates Fransico Stroud PCP [address] [facility] [address] [place] [address], [address], [facility] (Office): [facility] 01/12/2017 - 01/19/2017 Tala Venegas [address] [place] [address], [facility] (Office): [facility] 01/12/2017 - 01/19/2017 Gertrude Patel [address] [address], [facility] (Office): [facility] 01/12/2017 - 01/19/2017 Merle Flores [address] [address], [facility] (Office): [facility] 01/12/2017 - 01/19/2017 Eva Yoon [address] [place] [address], [facility] (Office): [facility] 01/12/2017 - 01/19/2017 Immunizations Immunization Status Vaccine Details Vaccine Code CodeSystem Date Notes Influenza completed Influenza, split virus, trivalent, injectable, contains preservative Given intramuscularly 141 CVX created date: 01/13/2017 administer ed date: 12/29/2016 Educated by giovanna nance rn on 01/13/2017 Pneumococcal Conjugate Vaccine (PCV13) completed pneumococcal conjugate vaccine, 13 valent Given intramuscularly 133 CVX created date: 01/13/2017 administer ed date: 12/19/2014 Educated by Giovanna nance rn on 01/13/2017 Mental Status Section Date Assessment Total Score Description 01/19/2017 BIMS 15 cognitively int act CAM 0 No delirium ind icated PHQ-9 00 Insurance Providers Coverage Status Coverage Type Relationship to Subscriber Member Identifier Subscriber Identifier Group Identifier Payer Identifier and Other information 2017 Code: 51 Code System OID:[id number] .[id number]. 5 Code System Name: Source of Payment Typology (PHDSC) Display: Managed Care (Private) Translation: Code: Code System: OID:[id number] .[id number]. 1336 Code System Name: Insurance Type Code ([id number]) Display Name: Health Maintenance Organization (HMO) Plan Code: SELF Code System Name: HL7 RoleCode Code System OID:[id number] .[id number] Display Name: Self [id number] Root: [id number] Payer Identifier: Root: [id number] Extension: [id number] Payer Name: [facility] Address: [id number] City: [place] State: [place] Country: [facility] Code: 81 Code System OID:[id number] .[id number]. 5 Code System Name: Source of Payment Typology (PHDSC) Display: Self Pay Translation: Code: 09 Code System: OID:[id number] .[id number]. 1336 Code System Name: Insurance Type Code ([id number]) Display Name: Self-pay Problems Problem # Description Date of onset Resolved Date Code CodeSystem Concern Status 1 AFTERCARE FOLLOWING JOINT REPLACEMENT SURGERY 01/12/[address] active 2 DIFFICULTY IN WALKING, NOT ELSEWHERE CLASSIFIED 01/12/[address] active 3 ESSENTIAL (PRIMARY) HYPERTENSION 01/12/[address] active 4 MUSCLE WEAKNESS (GENERALIZED) 01/12/[address] active 5 UNILATERAL PRIMARY OSTEOARTHRITIS, RIGHT KNEE 01/12/[address] active 6 UNSTEADINESS ON FEET 01/12/[address] active Reason for Referral No Reasons for Referral Entered Social History Social History Observation Description Start Date End Date Code Code System Current Smoking Status Tobacco smoking consumption unknown 008203198 SNOMED CT Sex Assigned At Male 1955 [address]-3 [facility] Gender Identity Sexual Orientation Vital Signs Code Code System Vitals Name Values and Units Timing Information 9279-1 [facility] Respiratory Rate Value=18.0 Units=/m in 01/19/2017 8462-4 [facility] Blood Pressure-Diastolic Value=69 Un its=mmHg 01/19/2017 8480-6 LOINC Blood Pressure-Systolic Fkwjk=343 Un its=mmHg 01/19/2017 8310-5 [facility] Body Temperature Value=98.1 Units= F 01/19/2017 8867-4 [facility] Heart rate Value=78.0 Units=/min 05/2016 11693-4 [facility] O2 % BldC Oximetry Value=94.0 Units= % 01/19/2017 73744-9 LOINC Weight Vgqzs=304.4 Units=Lbs 89097-9 [facility] Pain Level Value=4.0 01/13/2017 8302-2 [facility] Height Value=71.0 Units=Inches 01/13/2017
--- OUTSIDE RECORDS SUMMARY | 2025-04-04 09:23 | XMS_ITS | Clinical Summary ---
Author Organization [address] Address [address] [place] [address] Phone Care Team Providers Care Stationary Engineer Supervisor Name Role Phone North Roberts MD Primary Care Provider [phone] Allergies Active Allergy Reactions Criticality Noted Date Comments Ckjhazi-Lyw-Rqg Reductase Inhibitors 12/07/2024 Muscle aches Medications lisinopril (PRINIVIL,ZESTR IL) 40 mg tablet Take 1 tablet (40 mg total) by mouth 1 (one) time each day. Active amLODIPine (NORVASC) 10 mg tablet Take 1 tablet (10 mg total) by mouth 1 (one) time each day. Active aspirin 81 mg EC tablet Take 1 tablet (81 mg total) by mouth 1 (one) time each day. Active fenofibrate (TRICOR) 145 mg tablet Take 1 tablet (145 mg total) by mouth 1 (one) time each day. 5 Active ezetimibe (ZETIA) 10 mg tablet Take 1 tablet (10 mg total) by mouth 1 (one) time each day. Active hydroCHLOROthia zide (HYDRODIURIL) 25 mg tablet Take 1 tablet (25 mg total) by mouth 1 (one) time each day in the morning. Active triamcinolone (KENALOG) 0.1 % cream APPLY TOPICALLY TO THE AFFECTED AREA 2 TIMES WEEKLY Active multivitamin tablet Take 1 tablet by mouth 1 (one) time each day. Active cloNIDine (DMDTIGZJ-ZFH-1 ) 0.1 mg/[address] 1 patch on the skin 1 (one) time per week. Active loratadine (CLARITIN REDITABS) 10 mg dispersible tablet Dissolve 1 tablet (10 mg total) on top of the tongue 1 (one) time each day. Active coenzyme Q-10 (Co Q-10) 200 mg capsule Take 1 capsule (200 mg total) by mouth 1 (one) time each day. Active bempedoic acid (Nexletol) 180 mg tablet Take by mouth 1 (one) time each day. Active polyethylene glycol (Golytely) 236-22.74-6.74 -5.86 gram solution Take 4L by mouth once for one dose. May substitue any PEG. Starting at 2PM the day before your procedure drink 1 8oz glasses at your own pace until you complete half of the gallon. Finish 2nd half of the gallon at 8PM. 4000 mL 5 Active bisacodyL (DULCOLAX) 5 mg EC tablet Take 2 tablets by mouth right before beginning bowel prep. See instructions provided by the office 2 tablet 5 Active Encounters Date Type Department Care Team Description 03/15/2025 10:24 AM EST - 03/15/2025 11:59 PM EST Hospital Encounter [facility] Ultrasound [address] [place] [address] Personal history of nicotine dependence Discharge Disposition: Home or Self Care 03/06/2025 9:15 AM EST Lab Draw Station - [place] [address] [place] [address] Mixed hyperlipidemia (Primary Dx) from Last 3 Months Surgical History Surgery Date Site/Laterality Comments HERNIA REPAIR childhood PROCEDURE: HISTORICAL HERNIA REPAIR/ING; COMMENT: Bilaterally, before age 3 TOTAL KNEE ARTHROPLASTY Right PROCEDURE: MO ARTHRP KNE CONDYLE&PLATU MEDIAL&LAT COMPARTMENTS Medical History Medical History Date Comments Essential hypertension, benign 05/18/2006 D X:Essential hypertension, benign Statin myopathy 06/18/2011 DX:Statin myopat hy Obesity 05/18/2006 DX:Obesity; COMM ENT: BMI 40.75 on 01/04/13. Elevated liver enzymes DX:Elevat ed liver enzymes Hyperlipidemia DX:Hyperlipidemi a Family History Medical History Relation Name Comments Heart attack Father Stroke Father Cataracts Maternal Grandmother Colon cancer Mother Heart attack Sister 1 Other: fibromyalgia Sister 2 No Known Problems Son Blindness Neg Hx Glaucoma Neg Hx Macular degeneration Neg Hx Strabismus Neg Hx Relation Name Status Comments Father (Age 59) HTN, after stroke Maternal Grandmother Mother (Age 81) HTN, colon cancer Sister 1 x3, healthy Sister 2 Sister 3 Alive Son Alive Social History Tobacco Use Types Packs/Day Years [...] Sign Reading Time Taken Comments Blood Pressure 129/76 01/29/2024 9:40 AM EDT a Pulse 92 01/29/2024 9:40 AM EDT Temperature - - Respiratory Rate - - Oxygen Saturation - - Inhaled Oxygen Concentration - - Weight 129 kg (283 lb 14.4 oz) 11/26/2023 10:49 AM EDT Height 180.3 cm (5' 11 ) 11/26/2023 10:49 AM EDT Body Mass Index 39.6 11/26/2023 10:49 AM EDT Plan of Treatment Health Maintenance Due Date Last Done Comments Colorectal Cancer Screening: Stool Based Tests (FOBT/FIT) 03/24/2022 Falls Risk Assessment 03/24/2022 Hepatitis C Screening 03/24/2022 Medicare Annual Wellness Visit 03/24/2022 Social Influencers of Health Screening 03/24/2022 Depression Screening 04/20/2024 COVID-19 Vaccine ( season) 2025 12/23/2024, 12/17/2023, 05/22/2023, Additional history exists Colorectal Cancer Screening: Colonoscopy 12/25/2025 Hypertension/CHF/CAD Annual BMP Blood Test 03/06/2026 03/06/2025, 08/24/2024, 02/12/2024 Cholesterol Screening (Lipid Panel) 03/06/2030 03/06/2025, 08/24/2024, 02/12/2024 DTaP,Tdap,and Td Vaccines (4 - Td or Tdap) 03/04/2032 03/04/2022, 12/15/2011, 04/05/2007 Pneumococcal Vaccine: 50+ Years Completed 03/04/2022, 01/17/2020, 12/19/2014 RSV Immunization Adult Patients Completed 12/03/2022 Zoster Vaccines Completed 09/30/2024, 07/19, 09/13/2014 Influenza Vaccine Completed 12/22/2024, , 02/26/2023, Additional history exists Abdominal Aortic Aneurysm (AAA) Screen Discontinued 03/15/2025 HIB Vaccines Aged Out No longer eligi ble based on patient's age to complete this topic HPV Vaccines Aged Out No longer eligi ble based on patient's age to complete this topic Hepatitis A Vaccines Aged Out No long er eligible based on patient's age to complete this topic Hepatitis B Vaccines Aged Out No long er eligible based on patient's age to complete this topic IPV Vaccines Aged Out No longer eligi ble based on patient's age to complete this topic MMR Vaccines Aged Out No longer eligi ble based on patient's age to complete this topic Meningococcal ACWY Vaccine Aged Out N o longer eligible based on patient's age to complete this topic Meningococcal B Vaccine Aged Out No l onger eligible based on patient's age to complete this topic RSV Immunization Patients Under 20 months Aged Out No longer eligible based on patient's age to complete this topic Varicella Vaccines Aged Out No longer eligible based on patient's age to complete this topic Procedures Procedure Name Priority Date/Time Associated Diagnosis Comments US ABDOMEN AORTIC ANEURYSM SCREENING Routine 03/15/2025 10:42 AM EST Personal history of nicotine dependence LIPID PANEL WITH REFLEX TO DIRECT LDL Routine 03/06/2025 9:27 AM EST Mixed hyperlipidemia BASIC METABOLIC PANEL Routine 03/06/2025 9:27 AM EST Mixed hyperlipidemia from Last 3 Months Results * US Abdomen Aortic Aneurysm Screening (03/15/2025 10:42 AM EST) Anatomical Region Laterality Modality Abdominal aorta Ultrasound 03/15/2025 11:0 6 AM EST Impressions 03/15/2025 11:08 AM EST The abdominal aorta is normal in caliber, without evidence of aneurysm. Code 44622 G9551 -------- FINAL REPORT -------- Dictated By: Pallavi Sarmiento Dictated Date: 03/15/2025 11:06 ET Assigned Physician: Pallavi Sarmiento Reviewed and Electronically Signed By: Pallavi Sarmiento Signed Date: 03/15/2025 11:08 ET Workstation ID: [id number] Transcribed By: Self Edit Transcribed Date: 03/15/2025 11:06 ET Narrative 03/15/2025 11:08 AM EST HISTORY: The patient is a 69-year-old male [...] and the left ARCHANA measuring 1.5 cm. Procedure Note Pallavi Sarmiento MD - 03/15/2025 HISTORY: The patient is a 69-year-old male former smoker withhypertension, presenting for screening for an abdominal aortic aneurysm. FINDINGS: Real-time ultrasonography of the abdominal aorta is performed.The aorta is normal in caliber, with the suprarenal aorta measuring 3.1 cmin AP dimension x 2.6 cm in transverse dimension; the proximal infrarenalaorta measuring 2.1 x 2.2 cm; and the distal infrarenal aorta measuring1.9 x 1.6 cm. The common iliac arteries are normal in caliber, with theright ARCHANA measuring 1.6 cm and the left ARCHANA measuring 1.5 cm. IMPRESSION: The abdominal aorta is normal in caliber, without evidence of aneurysm. Code 21935 G9551 -------- FINAL REPORT -------- Dictated By: Pallavi Sarmiento Dictated Date: 03/15/2025 11:06 ET Assigned Physician: Pallavi Sarmiento Reviewed and Electronically Signed By: Pallavi Sarmiento Signed Date: 03/15/2025 11:08 ET Workstation ID: [id number] Transcribed By: Self Edit Transcribed Date: 03/15/2025 11:06 ET North Roberts MD [facility] PROCEDURES Final Result * Lipid panel with reflex to direct LDL (03/06/2025 9:27 AM EST) Cholesterol 148 0 - 200 mg/dL LAB CHEMISTRY METHOD 03/06/2025 1:09 PM EST [facility] Triglycerides 150 0 - 150 mg/dL LAB CHEMISTRY METHOD 03/06/2025 1:09 PM EST [facility] HDL 40 >=40 mg/dL LAB CHEMISTRY METHOD 03/06/2025 1:09 PM [facility] LDL Calculated 78 0 - 100 mg/dL LAB CHEMISTRY METHOD 03/06/2025 1:09 PM [facility] Comment:Estimated LDL Calcul ated using equation: Total cholesterol - HDL cholesterol - (Triglycerides/5) VLDL Cholesterol Reinaldo 30 mg/dL LAB CHEMISTRY METHOD 03/06/2025 1:09 PM EST [facility] Non HDL Chol. (LDL+VLDL) 108 <145 mg/dL LAB CHEMISTRY METHOD 03/06/2025 1:09 PM [facility] Chol/HDL Ratio 3.7 0.0 - 4.4 LAB CHEMISTRY METHOD 03/06/2025 1:09 PM [facility] Blood Venous blood specimen / Unknown Venipuncture / Unknown 03/06/2025 9:27 AM EST 03/06/2025 9:27 AM EST us North Roberts MD LAB BLOOD ORDERABLES Final Res ult [facility] [address] [place] [address], [place] [phone] * (ABNORMAL) Basic metabolic panel (03/06/2025 9:27 AM EST) Sodium 139 133 - 145 mmol/L LAB CHEMISTRY METHOD 03/06/2025 1:09 PM [facility] Potassium 4.1 3.5 - 5.5 mmol/L LAB CHEMISTRY METHOD 03/06/2025 1:09 PM [facility] Chloride 104 96 - 110 mmol/L LAB CHEMISTRY METHOD 03/06/2025 1:09 PM [facility] CO2 29 21 - 32 mmol/L LAB CHEMISTRY METHOD 03/06/2025 1:09 PM [facility] Anion Gap 6 3 - 11 LAB CHEMISTRY METHOD 03/06/2025 1:09 PM [facility] Glucose 103(H) 70 - 100 mg/dL LAB CHEMISTRY METHOD 03/06/2025 1:09 PM [facility] BUN 29(H) 5 - 25 mg/dL LAB CHEMISTRY METHOD 03/06/2025 1:09 PM [facility] Creatinine 1.23 0.70 - 1.30 mg/dL LAB CHEMISTRY METHOD 03/06/2025 1:09 PM [facility] eGFR 63 >=60 mL/min/1. 73m2 LAB CHEMISTRY METHOD 03/06/2025 1:09 PM [facility] Comment:Calculation based on the Chronic Kidney Disease Epidemiology Collaboration (CKD-EPI) equation refit without adjustment for race. BUN/Creatinine Ratio 23.6 LAB CHEMISTRY METHOD 03/06/2025 1:09 PM [facility] Calcium 9.5 8.5 - 10.5 mg/dL LAB CHEMISTRY METHOD 03/06/2025 1:09 PM [facility] Blood Venous blood specimen / Unknown Venipuncture / Unknown 03/06/2025 9:27 AM EST 03/06/2025 9:27 AM EST us North Roberts MD LAB BLOOD ORDERABLES Final Res ult [facility] [address] [place] [address], from Last 3 Months Insurance [employer] Care Teams Stationary Engineer Supervisor Relationship Specialty Start Date End Date North Roberts MD [address] [place] [address] PCP - General Internal Medicine 09/01/24
== END 2025-04-04 08:56 | disposition home or self-care (01) ==
LOC: HO.HPHYS 08:42
PROVIDERS: PCP Hospitalist; Visit Provider Physical Medicine & Rehabilitation
DX: M75.41 Impingement syndrome of right shoulder (principal); M19.011 Primary osteoarthritis, right shoulder
CPT/HCPCS: 20610

== ENCOUNTER → 2025-04-04 08:41 | Outpatient (BNVA) | payer OTHER, SELFPAY | PROVIDERS: PCP Hospitalist; Visit Provider Physical Medicine & Rehabilitation | DX: M19.011 Primary osteoarthritis, right shoulder (principal); M75.41 Impingement syndrome of right shoulder | CPT/HCPCS: 20610; J2003; J3301 ==